=== PATIENT | female | born 2000 | race Caucasian/White ===

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

== ENCOUNTER 2022-02-09 12:32 | Emergency (ER) | payer OTHER ==
[~2022-02-09] VITALS: Ht 167.6 cm; Wt 116.1 kg
[~2022-02-09 12:32] MED LIST changes: +MELOXICAM15 MG PO; +ZAFEMY 150-351 EACH TD
== END 2022-02-09 14:26 | disposition home or self-care (01) ==
LOC: ED 12:32
DX: N89.8 Other specified noninflammatory disorders of vagina (principal); R11.0 Nausea; Z91.018 Allergy to other foods; Z79.899 Other long term (current) drug therapy; J45.909 Unspecified asthma, uncomplicated
CPT/HCPCS: 36415; 81001; 84703; 87210; 87491; 99283

== ENCOUNTER 2024-03-06 12:10 | Emergency (ER) | payer OTHER ==
[~2024-03-06] VITALS: Ht 167.6 cm; Wt 97.3 kg
[2024-03-06] MEDS ORDERED: VENTOLIN HFA18 GM INH (12:33)
[2024-03-06 12:41] VITALS: BP 133/94
== END 2024-03-06 12:43 | disposition home or self-care (01) ==
LOC: ED 12:10
DX: B34.9 Viral infection, unspecified (principal); J45.909 Unspecified asthma, uncomplicated; Z91.018 Allergy to other foods; Z79.1 Long term (current) use of non-steroidal anti-inflammatories (NSAID); Z79.899 Other long term (current) drug therapy
CPT/HCPCS: 99283

== ENCOUNTER 2024-04-18 16:33 | Emergency (ER) | payer OTHER ==
[~2024-04-18] VITALS: Ht 167.6 cm; Wt 98.4 kg
[~2024-04-18 16:33] MED LIST changes: +VENTOLIN HFA18 GM INH
[2024-04-18 17:55] LABS: INFLUENZA B NAA NEGATIVE (NEGATIVE); RESPIRATORY SYNCYTIAL VIR NAA NEGATIVE (NEGATIVE)
[2024-04-18] MEDS ORDERED: IBUPROFEN 600 MG TAB PO ONE (18:15)
[2024-04-18] MEDS ORDERED: ACETAMINOPHEN 500 MG TAB PO ONE (18:15)
[2024-04-18 18:23] VITALS: BP 126/64
== END 2024-04-18 18:24 | disposition home or self-care (01) ==
LOC: ED 16:33
PROVIDERS: Emergency Medicine
DX: J10.1 Influenza due to other identified influenza virus with other respiratory manifestations (principal); J45.909 Unspecified asthma, uncomplicated; Z91.018 Allergy to other foods
CPT/HCPCS: 87502; 99283; A9270; U0002

== ENCOUNTER 2024-11-02 19:04 | Emergency (ER) | payer OTHER ==
[~2024-11-02] VITALS: Ht 167.6 cm; Wt 105.9 kg
[2024-11-02 19:51] LABS: BLOOD/HGB, URINE MODERATE (Negative); KETONE, URINE NEGATIVE (Negative); LEUK ESTERASE, URINE NEGATIVE (negative); NITRITE, URINE NEGATIVE (negative)
[2024-11-02 20:01] LABS: CASTS, URINE NONE SEEN \\lpf; CRYSTALS, URINE NONE SEEN (0-1+); EPITHELIAL CELLS, URINE SQUAMOUS 1+ /lpf (0-1+)
[2024-11-02 20:02] LABS: BACTERIA, URINE RARE /hpf (negative); REFLEX CULTURE, URINE No (No)
[2024-11-02] MEDS ORDERED: MACROBID 100 M100 MG PO (20:52)
[2024-11-02] MEDS ORDERED: FLUCONAZOLE150 MG PO (20:52)
[2024-11-02] MEDS ORDERED: FLUCONAZOLE 150 MG TAB PO ONE (21:00)
[2024-11-02] MEDS ORDERED: NITROFURANTOIN MONOHYD MACROCR 100 MG HOME.PACK PO ONE (21:00)
[2024-11-02 21:09] VITALS: BP 116/69
== END 2024-11-02 21:00 | disposition home or self-care (01) ==
LOC: ED 19:04
PROVIDERS: Family Medicine
DX: N39.0 Urinary tract infection, site not specified (principal); B37.9 Candidiasis, unspecified; J45.909 Unspecified asthma, uncomplicated; Z91.018 Allergy to other foods
CPT/HCPCS: 81001; 87088; 99283